=== PATIENT | male | born 1970 | race Caucasian/White ===

== ENCOUNTER 2018-07-27 14:05 | Emergency (ER) | payer BC, OTHER ==
[~2018-07-27] VITALS: Ht 177.8 cm; Wt 86.4 kg
[~2018-07-27 14:05] MED LIST: INSU100V9 SQ; NOVRI SQ
[2018-07-27 14:12] VITALS: BP 148/89
[2018-07-27] MEDS ORDERED: LIDOcaine 1% 30ml preserv. free vial IJ ONE (14:20)
[2018-07-27] MEDS ORDERED: TETanus/Pertussis (Acell)/Diphther VAC/PF (Tdap-Adult) 0.5ml syringe IM ONE (14:20)
== END 2018-07-27 16:22 | disposition home or self-care (01) ==
LOC: ER 14:06
DX: S01.511A Laceration without foreign body of lip, initial encounter (principal); E11.9 Type 2 diabetes mellitus without complications; W22.8XXA Striking against or struck by other objects, initial encounter; Y93.89 Activity, other specified; Y92.89 Other specified places as the place of occurrence of the external cause; Y99.8 Other external cause status
CPT/HCPCS: 40650; 99284; J3490; 99285

== ENCOUNTER 2023-07-30 06:20 | Emergency (ER) | payer BC, OTHER ==
[~2023-07-30] VITALS: Ht 177.8 cm; Wt 88.7 kg
[2023-07-30 06:39] VITALS: TEMP 97.8
--- NOTE | 2023-07-30 08:35 | NUR ---
COMPUTER SYSTEMS SOFTWARE ARCHITECT GENERAL ASSESSMENT REVIEWED BY ANDREA RN; APPROVED.
[2023-07-30 08:39] VITALS: BP 148/82; PULSE 72; RESP 18; O2SAT 98
== END 2023-07-30 08:39 | disposition home or self-care (01) ==
LOC: ER 06:21
DX: S76.812A Strain of other specified muscles, fascia and tendons at thigh level, left thigh, initial encounter (principal); X58.XXXA Exposure to other specified factors, initial encounter; Y93.89 Activity, other specified; Y92.89 Other specified places as the place of occurrence of the external cause; Y99.8 Other external cause status
CPT/HCPCS: 29530; 73564; 99283